=== PATIENT | female | born 2000 | race Caucasian/White ===

== ENCOUNTER 2021-07-14 18:43 | Emergency (ER) | payer OTHER ==
[~2021-07-14 18:43] MED LIST: AUGMENTIN 875-1 EACH PO; COLACE 100MG C100 MG PO; IBUPROFEN600 MG PO; LORTAB 5-325 M1 EACH PO
== END 2021-07-14 18:58 | disposition left against medical advice (07) ==
LOC: ER1 18:43
DX: R11.2 Nausea with vomiting, unspecified (principal); R19.7 Diarrhea, unspecified; R10.816 Epigastric abdominal tenderness
CPT/HCPCS: 99283